=== PATIENT | female | born 1935 | race Caucasian/White ===

== ENCOUNTER 2016-06-22 20:46 | Emergency (ER) | payer MEDICARE, OTHER ==
[2016-06-22 21:09] VITALS: BMI 20.3
[2016-06-22 21:11] VITALS: TEMP 98.1
--- NOTE | 2016-06-22 21:27 | EDPRACDOC ---
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 Mode Of Arrival: Ambulance Home Medications: Home Medications Aspirin [Aspirin EC] 81 mg PO QHS 05/01/13 Calcium Carbonate/Vitamin D3 [Calcium + Vit D Tablet (500mg/200IU)] 1 tab PO BID 05/01/13 Ergocalciferol (Vitamin D2) [Vitamin D2 (ergocalciferol)] 50,000 units PO FR Multivitamin [Multiple Vitamins] 1 tab PO DAILY 05/01/13 Donepezil HCl [Aricept] 5 mg PO QHS 03/23/16 Letrozole 2.5 mg PO DAILY 03/23/16 Sertraline HCl [Zoloft] 50 mg PO QHS 03/23/16 Metoprolol Tartrate [Lopressor] 12.5 mg PO BID #60 tablet 03/28/16 Lisinopril [Zestril] 20 mg PO BID 06/22/16 Allergies/Adverse Reactions: Allergies Allergy/AdvReac Type Severity Reaction Status Date / Time cyclobenzaprine Allergy See Verified 06/22/16 21:11 Comments hydralazine Allergy Irregular Verified 06/22/16 21:11 Heartbeat oxycodone Allergy See Verified 06/22/16 21:11 Comments - History of Present Illness Onset: [employer] Medications/Treatment 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 EMS NOTED WHAT APPEARED TO BE TOMATO PUREE A IN THE TOILET, CONCERN FOR GI BLEED. 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 Osteoporosis.) Psychological History: Reports: Depression. Denies: Substance Use Disorder Systemic History: Reports: Cancer (L Breast 2012, Stage IIB ([id number]), Rad to 2014. Dr. Cunningham.) Surgical History: Reports: Hysterectomy, Tonsillectomy/Adnoidectomy, Other (2012 Left breast lumpectomy+nodes, Dr. Neves.) Date of Last Radiation Treatment: 2012 Date of Last Chemotherapy Date: NONE - Family Medical History Reports: Cancer (MOTHER, PANCREATIC), Blood Disorders (Father: of pulmonary embolism.). Denies: Hypertension, Diabetes, Stroke, Cardiac Disorders - Social Medical History Smoking Status: Never smoker Social History: Denies: Substance Use Disorder ETOH: None Substance Abuse: None Lives With: Other Lives In: Assisted Living ([facility]) ED Review of Systems - Review of Systems ROS Negative Except as Marked: Yes All systems reviewed and were negative except as marked ROS Unobtainable: Yes Review of systems cannot be obtained due to the patient's medical condition ( LIMITED BY DEMENTIA) - Physical Exam Constitutional: Alert (Awake), No apparent distress Oriented to: Person, Not Oriented Last recorded Vital Signs: Last Vital Signs Temp 98.1 F 06/22/16 21:10 Pulse 55 L 06/22/16 21:10 Resp 22 06/22/16 21:10 BP 178/76 06/22/16 21:10 Pulse Ox 95 06/22/16 21:10 Oxygen Pulse Oxygen Saturation 95 O2 Device Oxygen Flow Rate Fraction of Inspired Oxygen ( FIO2) - HEENT Head: Normal ( normocephalic) Eye Exam: Normal (PERRL, EOMI, Sclera white) Oropharynx: Normal (Pharynx:Moist without exudate,Gums-no swelling) Nose: No Symptoms Reported (septum midline) Neck: Normal (FROM, trachea at midline) - Respiratory/Cardiovascular Respiratory: Normal - CTA (BBS clear to auscultation without adventitious sounds ) Cardiovascular: Normal (RRR without murmur, gallop or rub) - GI Auscultation: Normal (NABS) Palpation: Normal (Soft,No rebound or guarding, non distended) Tenderness: Non tender Hurtado's Sign: Negative Rectal Exam: Normal, Heme negative stool Stool: Brown - Musculoskeletal Back: Normal (Non-Tender) Extremities: Normal (Normal tone, Pulses 2+ No cyanosis or edema, FROM), Other ( ALL 4 EXT NTTP, FROM) - Integumentary Skin: Normal, Warm, Dry Lymphatics: Normal (no adenopathy) - Neurologic Memory Impaired: Normal Motor Function: Normal (Normal tone, Pulses 2+ No cyanosis or edema, FROM) Cranial Nerve: Normal (CN II-X11 intact sensation, strength 5/5) Cerebellar: Normal Mood Description: Normal Perception: Normal - Re-evaluation Re-evaluation 3 Re-evaluation Time: 22:40 (NO PAIN, WELL APPEARING. FAMILY STATES AT BASELINE.) AMBULATED EASILY PER NORMAL WITH WALKER. - Results 06/22/16 21:20 06/22/16 21:20 - EKG EKG #1 EKG Time: 20:59 -: Yes EKG interpreted by me Rate: bpm: 54 Fults: Normal Rhythm: SB Block: None Hypertrophy: None ST: Normal Comparison: 03/25/16 (SIMILAR) - Diagnostic Imaging Chest Image interpreted by: Radiologist Patient Name: HALLEY VAZQUEZ LOC: ED : 1935 AGE: 81 Order Date:06/22/16 Date of Service:12/01 Report # [id number] Ord Physician: Lisa Heredia MD Exam # [id number] Emergency Physician: Lisa Heredia MD Exam(s): [id number] RAD/DG CHEST PORTABLE CLINICAL DATA: Syncope, fall EXAM: PORTABLE CHEST 1 VIEW COMPARISON: 03/25/2016 FINDINGS: The heart size and mediastinal contours are within normal limits. Both lungs are clear. The visualized skeletal structures are unremarkable. IMPRESSION: No active disease. Electronically Signed By: Aiden Quinn M.D. On: 06/22/2016 21:32 Electronically Signed By: Aiden Quinn MD Electronically Signed Date/Time: [id number] Dictate Date/Time: 06/22/162130 Technologist: Bo Sanchez Transcribed By: Juan Transcribed Date/Time: 06/22/16 213 - Departure Disposition: Assisted Living Facility Condition: Stable Final Diagnosis: Syncope and collapse, Vasovagal near syncope, DEFACATION SYNCOPY Instructions: Weakness (General) Education/Counseling Given To: Patient, Family Member Education/Counseling Given Regarding: Diagnosis, Treatment, Prognosis Referrals: Chandra Fuentes MD [Primary Care Provider] - One Week
[2016-06-22 21:33] LABS: AUTOMATED BASOPHIL 0.7 % (0-2); AUTOMATED EOSINOPHIL 2.2 % (0-5); AUTOMATED LYMPH 20.5 % (17-44); AUTOMATED NEUTROPHIL 64.6 % (45-76); MPV 8.3 fL (7.4-10.4)
--- NOTE | 2016-06-22 21:35 | DIRPT ---
CLINICAL DATA: Syncope, fall EXAM: PORTABLE CHEST 1 VIEW COMPARISON: 03/25/2016 FINDINGS: The heart size and mediastinal contours are within normal limits. Both lungs are clear. The visualized skeletal structures are unremarkable. IMPRESSION: No active disease. Electronically Signed By: Aiden Quinn M.D. On: 06/22/2016 21:32
[2016-06-22 21:43] LABS: BLOOD UREA NITROGEN 24 MG/DL (7-17); CALC CORRECTED 9.9 MG/DL (8.4-10.2); CALCIUM 9.5 MG/DL (8.4-10.2); CALCULATED OSMOLALITY 271 MOs/Kg (270-290); CHLORIDE 99 mEq/L (98-107); GLUCOSE 109 MG/DL (70-99); SODIUM LEVEL 138 mEq/L (137-146); TOTAL PROTEIN 6.7 G/DL (6.3-8.2)
[2016-06-22 21:48] LABS: PARTIAL THROMB. TIME 23.7 SEC (22-35)
[2016-06-22 23:10] VITALS: BP 197/77; PULSE 58
== END 2016-06-22 23:14 | disposition home or self-care (01) ==
LOC: ED 20:46
DX: R55 Syncope and collapse (principal)
CPT/HCPCS: 36415; 71010; 80053; 84484; 85025; 85610; 85730; 86850; 86900; 86901; 93005; 99285; A9270; J3490